=== PATIENT | female | born 1980 | race Caucasian/White ===

== ENCOUNTER → 2023-09-29 07:47 | Outpatient (REF) | payer OTHER, SELFPAY | LOC: EMG 07:47 | PROVIDERS: ATTENDING PHYSICIAN Psychiatry & Neurology Neurology; FAMILY PHYSICIAN Nurse Practitioner Family | DX: R94.130 Abnormal response to nerve stimulation, unspecified (principal); R20.0 Anesthesia of skin | CPT/HCPCS: 95886; 95911 ==